=== PATIENT | female | born 1960 | race Caucasian/White ===

== ENCOUNTER 2021-07-25 12:31 | Emergency (ER) | payer BC ==
[~2021-07-25] VITALS: Ht 152.4 cm; Wt 47.6 kg
[2021-07-25] MEDS ORDERED: ONDANSETRON ODT 4 MG TAB.RAPDIS SL ONE (13:00)
[2021-07-25] MEDS ORDERED: HYDROCODONE/APAP 5-325MG TABLET PO ONE (13:00)
[2021-07-25] MEDS ORDERED: ONDANSETRON ODT 4 MG TAB.RAPDIS ONE (13:10)
[2021-07-25] MEDS ORDERED: HYDROCODONE/APAP 5-325MG TABLET ONE (13:11)
--- NOTE | 2021-07-25 13:43 | NUR ---
Patient discharged to home in stable condition. Written and verbal after care instructions given. Patient verbalizes understanding of instructions. Stressed follow up or return to ER for worsening s/s.
== END 2021-07-25 13:43 | disposition home or self-care (01) ==
LOC: ER 12:31
DX: R51.9 Headache, unspecified (principal); F31.9 Bipolar disorder, unspecified; F43.10 Post-traumatic stress disorder, unspecified; Z88.2 Allergy status to sulfonamides; Z87.820 Personal history of traumatic brain injury
CPT/HCPCS: 70450; A4663; Q0162